=== PATIENT | female | born 1975 | race Caucasian/White ===

== ENCOUNTER 2024-04-02 13:23 | Observation (INO) ==
[2024-04-02 15:22] LABS: Hematocrit 17.5 % (35-45); Hemoglobin 5.4 g/dL (11.5-14.3); Mean Corpuscular Hgb Conc 30.6 g/dL (31-36); Mean Corpuscular Volume 65.4 fL (80-97); Mean Platelet Volume 9.3 fL (7.5-11.2); Platelet Count 177 10^3/uL (150-450); Red Blood Count 2.68 10^6/uL (3.63-4.92); Red Cell Distribution Width 19.7 % (12-17); White Blood Count 6.1 10^3/uL (3.8-11.8)
[2024-04-02 15:26] LABS: Activated Partial Thrombo Time 29.7 seconds (26.0-38.0); INR 1.19 (0.83-1.13)
[2024-04-02 15:46] LABS: ABS Eosinophils 0.1 10^3/uL (0.0-0.5); ABS Lymphocytes 1.1 10^3/uL (1.0-4.8); ABS Monocytes 0.6 10^3/uL (0.0-0.9); ABS Neutrophils 4.2 10^3/uL (1.5-7.6); ABS Nucleated RBC 0.02 10^3/ul; Anisocytosis 1+; Eosinophil % 2.5 %; Lymphocyte % 18.5 %; Macrocytosis 1+; Microcytosis 1+; Nucleated Red Blood Cells % 0.2 %/100WBC (0.0-0.8); Polychromasia 1+; Rouleaux 1+
[2024-04-02 16:02] LABS: ALT 87 U/L (7-52); AST 72 U/L (13-39); Albumin 4.1 g/dL (3.2-5.2); Albumin/Globulin Ratio 1.6 (1-3); Alkaline Phosphatase 93 U/L (35-149); Anion Gap 9 mmol/L (2-16); Blood Urea Nitrogen 11 mg/dL (6-24); CO2 Carbon Dioxide 26 mmol/L (22-32); Calcium 8.9 mg/dL (8.6-10.3); Chloride 105 mmol/L (101-111); Creatinine, Serum 0.67 mg/dL (0.51-0.95); Globulin 2.6 g/dL (2-4); Glucose 99 mg/dL (70-100); Potassium 3.9 mmol/L (3.5-5.0); Sodium 140 mmol/L (135-145); Total Bilirubin 0.5 mg/dL (0.2-1.0); Total Protein 6.7 g/dL (6.4-8.9); eGFR CKD-EPI 106.4 (>60)
[2024-04-02 18:36] LABS: % Iron Saturation 3 % (15-55); .Transferrin 411 mg/dL (203-362); Iron < 20 ug/dL (50-212); Total Iron Binding Capacity 575 mcg/dL (250-450); Unsaturated Iron Binding 555 ug/dL
[2024-04-02] MEDS: Pantoprazole VIAL 40 MG VIAL IV SCH (18:47)
[2024-04-02 19:03] LABS: Vitamin B12 556 pg/mL (180-914)
[2024-04-02] MEDS ORDERED: Senna/Docusate 8.6/50 mg (NF) TAB PO SCH (21:00)
[2024-04-02] MEDS: NS 0.9% 1000 ml BAG 1,000 ML IV SCH (21:30)
[2024-04-02] MEDS: Senna TAB 8.6 mg TAB PO SCH (22:30)
[2024-04-02] MEDS: Ferric Gluconate IV 250 MG in NS 0.9% 250 ml 200 ML IVPB SCH (22:51)
[2024-04-03 07:01] LABS: ABS Eosinophils 0.2 10^3/uL (0.0-0.5); ABS Lymphocytes 0.8 10^3/uL (1.0-4.8); ABS Monocytes 0.6 10^3/uL (0.0-0.9); ABS Neutrophils 4.3 10^3/uL (1.5-7.6); ABS Nucleated RBC 0.01 10^3/ul; Eosinophil % 2.9 %; Hematocrit 23.9 % (35-45); Hemoglobin 7.9 g/dL (11.5-14.3); Lymphocyte % 14.2 %; Mean Corpuscular Hemoglobin 23.6 pg (27-33); Mean Corpuscular Hgb Conc 33.1 g/dL (31-36); Mean Corpuscular Volume 71.4 fL (80-97); Mean Platelet Volume 8.6 fL (7.5-11.2); Nucleated Red Blood Cells % 0.1 %/100WBC (0.0-0.8); Platelet Count 151 10^3/uL (150-450); Red Blood Count 3.35 10^6/uL (3.63-4.92); White Blood Count 5.9 10^3/uL (3.8-11.8)
[2024-04-03 07:48] LABS: Calcium 8.3 mg/dL (8.6-10.3); Creatinine, Serum 0.67 mg/dL (0.51-0.95); Magnesium 2.3 mg/dL (1.9-2.7); Potassium 4.2 mmol/L (3.5-5.0); eGFR CKD-EPI 106.4 (>60)
[2024-04-03 10:24] VITALS: BP 119/75
== END 2024-04-03 12:50 | disposition home or self-care (01) ==
LOC: ED 13:23 → EDHOLD 13:23 → SUATTDRO 17:34 → MED 04-03 00:22
PROVIDERS: ADMIT Internal Medicine; ATTEND Student in an Organized Health Care Education/Training Program